=== PATIENT | female | born 1995 | race Caucasian/White ===

== ENCOUNTER 2016-11-27 20:28 | Emergency (ER) | payer BC ==
[2016-11-27 20:35] VITALS: BP 132/80; BMI 55.0
--- NOTE | 2016-11-27 21:15 | DR.GENAD ---
HPI - PCP Primary Care Physician: NFD - Complaint/Symptoms Chief Complaint Doctors Comments: Patient admits to suprapubic, LUQ pain and subxiphoid pain for two days Chief Complaint:: BLOATING IN MY STOMACH, PAIN IN MY STOMACH AND BACK FOR 2 DAYS. THOUGHT IT WAS GAS BUT I HAVE TAKEN GAS X TIMES 6, PROTONIX, NOTHING IS HELPING. NAUSEA NO VOMITING. CONSTANT PAIN UNDER RT BREAST TO DIFFUSE ABD AND MID BACK. PAIN WITH BREATHING IN. Self Treatment fo Chief Complaint: SEE ABOVE NOTES - Source History Provided: Patient - Mode of Arrival Mode of Arrival: Ambulatory - Timing Onset of Chief Complaint: 11/26/16 PMH - PMH Past Medical History: Yes Past Medical History: GERD Past Medical History Comment: PCOS Past Surgical History: No - Family History History of Family Medical Conditions: No - Social History Does patient currently use any type of tobacco product: No Have you used tobacco products in the last 12 months: No Type of Tobacco Use: None Does any household member use tobacco: No Alcohol Use: None Do you use any recreational Drugs:: No Lives With: Spouse Lives Where: Home - infectious screening Have you traveled outside the country in the last 6 months?: No Isolation: Standard ROS - Review of Systems Constitutional: negative: Chills Eyes: No Symptoms Reported ENTM: No Symptoms Reported Respiratoy: No Symptoms Reported Cardiovascular: No Symptoms Reported Gastrointestinal/Abdominal: No Symptoms Reported Genitourinary: No Symptoms Reported Neurological: No Symptoms Reported Musculoskeletal: No Symptoms Reported Integumentary: No Symptoms Reported Hematologic/Lymphatic: No Symptoms Reported Endocrine: No Symptoms Reported Psychiatric: No Symptoms Reported All Other Systems: Reviewed and Negative PE - Vital Signs Vitals: Pulse Rate 100 Respiratory Rate 18 Blood Pressure 132/80 O2 Sat by Pulse Oximetry 97 - General Limitations: No Limitations General Appearance: Alert, In No Apparent Distress - Head Head Exam: Normal Inspection, Atraumatic - Eyes Eye exam: Normal Appearance, PERRL, EOMI - ENT ENT Exam: Normal Exam External Ear Exam: Normal External Inspection TM/Canal Exam: Bilateral Normal Nose Exam: Normal Nose Exam Mouth Exam: Normal Inspection Throat Exam: Normal Inspection - Neck Neck Exam: Normal Inspection, Full ROM - Chest Chest Inspection: Normal Inspection - Respiratory Respiratory Exam: Normal Lung Sounds Bilat Respiratory Exam: Bilateral Clear to Auscultation - Cardiovascular Cardiovascular Exam: Regular Rate, Normal Rhythm - Abdominal Exam Abdominal Exam: Tenderness (LUQ) Abdominal Tenderness: Epigastrium, Suprapubic - Extremities Extremities Exam: Normal Inspection, Full ROM - Back Back Exam: Normal Inspection, Full ROM - Neurologic Neurological Exam: Alert, Oriented X3, CN II-XII Intact - Psychiatric Psychiatric Exam: Normal Affect, Normal Mood - Skin Skin Exam: Warm, Dry ROR - Labs Reviewed Laboratory Results Reviewed?: Yes (H pylori, Urine:2+leuk;wbc 8-10) Result Diagrams: 11/27/16 21:10 Laboratory: WBC 10.3 X10^3/uL (3.6-10.0) H 11/27/16 21:10 RBC 5.29 X10^6/uL (3.5-5.4) 11/27/16 21:10 Hgb 14.8 g/dL (12.0-16.0) 11/27/16 21:10 Hct 42.9 % (36.0-47.0) 11/27/16 21:10 MCV 81.2 fL (80.0-100.0) 11/27/16 21:10 MCH 28.0 pg (27.0-34.0) 11/27/16 21:10 MCHC 34.5 g/dL (33.0-35.0) 11/27/16 21:10 RDW 14.7 % (11.6-16.5) 11/27/16 21:10 Plt Count 190 X10^3/uL (150.0-450.0) 11/27/16 21:10 MPV 10.8 fL (7.4-11.0) 11/27/16 21:10 Neut % 62.5 % (42.0-75.0) 11/27/16 21:10 Lymph % 27.0 % (21.0-51.0) 11/27/16 21:10 [place] % 7.7 % (0.0-13.0) 11/27/16 21:10 Eos % 1.8 % (0.9-2.9) 11/27/16 21:10 Baso % 1.0 % (0.2-1.0) 11/27/16 21:10 Neut # 6.5 x10^3/uL (2.2-4.8) H 11/27/16 21:10 Lymph # 2.8 X10^3/uL (1.3-2.9) 11/27/16 21:10 [place] # 0.8 x10^3/uL (0.3-0.8) 11/27/16 21:10 Eos # 0.2 x10^3/uL (0.0-0.2) 11/27/16 21:10 Baso # 0.1 X10^3/uL (0.0-0.1) 11/27/16 21:10 Absolute Nucleated RBC 0.1 /100WBC 11/27/16 21:10 C-Reactive Protein 31.40 mg/L (0-3.0) H 11/27/16 21:10 Amylase 97 Units/L (25-115) 11/27/16 21:10 Lipase 225 Units/L (73-393) 11/27/16 21:10 HCG, Qual Negative <10 mIU/mL 11/27/16 21:10 Specimen Type Clean catch urine 11/27/16 21:10 Urine Color Yellow (YELLOW) 11/27/16 21:10 Urine Appearance Cloudy (CLEAR) 11/27/16 21:10 Urine pH 5.0 (5.0 - 8.0) 11/27/16 21:10 Ur Specific [place] 1.025 (1.000-1.030) 11/27/16 21:10 Urine Protein 2+ (NEGATIVE) 11/27/16 21:10 Urine Glucose (UA) Negative (NEGATIVE) 11/27/16 21:10 Urine Ketones Negative (NEGATIVE) 11/27/16 21:10 Urine Occult Blood 5+ (NEGATIVE) 11/27/16 21:10 Urine Nitrite Negative (NEGATIVE) 11/27/16 21:10 Urine Bilirubin Negative (NEGATIVE) 11/27/16 21:10 Urine Urobilinogen Normal (NORMAL) 11/27/16 21:10 Ur Leukocyte Esterase 2+ (NEGATIVE) 11/27/16 21:10 Urine RBC 0-3 /HPF (NEGATIVE) 11/27/16 21:10 Urine WBC 8-10 /HPF (NEGATIVE) 11/27/16 21:10 Ur Squamous Epith Cells Rare /HPF (NEGATIVE) 11/27/16 21:10 Amorphous Sediment 1+ /HPF (NEGATIVE) 11/27/16 21:10 Urine Bacteria 2+ /HPF (NEGATIVE) 11/27/16 21:10 Ur Culture Indicated? Yes/culture set up 11/27/16 21:10 H. pylori IgG Antibody Positive (NEGATIVE) A 11/27/16 21:10 - Diagnosis Discharge Problem: Helicobacter pylori gastritis UTI (urinary tract infection) Qualifiers: Urinary tract infection type: acute cystitis Hematuria presence: with hematuria Qualified Code(s): N30.01 - Acute cystitis with hematuria - Discharge Plan Condition: Stable - Follow ups/Referrals Follow ups/Referrals: NFD,None [Primary Care Provider] - 3 days - Instructions
[2016-11-27 21:26] LABS: BASOPHILS # (AUTO) 0.1 X10^3/uL (0.0-0.1); BILIRUBIN,URINE NEGATIVE (NEGATIVE); BLOOD/HEMOGLOBIN,URINE 5+ (NEGATIVE); EOSINOPHILS # (AUTO) 0.2 x10^3/uL (0.0-0.2); EOSINOPHILS % (AUTO) 1.8 % (0.9-2.9); GLUCOSE, URINE NEGATIVE (NEGATIVE); HEMATOCRIT 42.9 % (36.0-47.0); HEMOGLOBIN 14.8 g/dL (12.0-16.0); KETONES,URINE NEGATIVE (NEGATIVE); LEUKOCYTE ESTERASE ,URINE 2+ (NEGATIVE); LYMPHOCYTES # (AUTO) 2.8 X10^3/uL (1.3-2.9); MEAN CORPUSCULAR HGB CONC 34.5 g/dL (33.0-35.0); MEAN CORPUSCULAR VOLUME 81.2 fL (80.0-100.0); MEAN PLATELET VOLUME 10.8 fL (7.4-11.0); MONOCYTES # (AUTO) 0.8 x10^3/uL (0.3-0.8); MONOCYTES % (AUTO) 7.7 % (0.0-13.0); NEUTROPHILS # (AUTO) 6.5 x10^3/uL (2.2-4.8); NEUTROPHILS % (AUTO) 62.5 % (42.0-75.0); NITRITES,URINE NEGATIVE (NEGATIVE); PLATELET COUNT 190 X10^3/uL (150.0-450.0); PROTEIN,URINE 2+ (NEGATIVE); RED BLOOD COUNT 5.29 X10^6/uL (3.5-5.4); RED CELL DISTRIBUTION WIDTH 14.7 % (11.6-16.5); UROBILINOGEN,URINE NORMAL (NORMAL); WHITE BLOOD COUNT 10.3 X10^3/uL (3.6-10.0)
[2016-11-27 21:34] LABS: C-REACTIVE PROTEIN 31.4 mg/L (0-3.0); SERUM PREGNANCY TEST, QUAL NEGATIVE <10 mIU/mL
[2016-11-27 21:35] LABS: AMORPHOUS SEDIMENT,UR 1+ /HPF (NEGATIVE); APPEARANCE,URINE CLOUDY (CLEAR); BACTERIA,URINE 2+ /HPF (NEGATIVE); COLOR,URINE YELLOW (YELLOW); RBC,URINE 0-3 /HPF (NEGATIVE); SQUAMOUS EPITHELIAL CELL,UR RARE /HPF (NEGATIVE)
== END 2016-11-27 21:57 | disposition home or self-care (01) ==
LOC: ER 20:41
DX: N30.01 Acute cystitis with hematuria (principal); B96.81 Helicobacter pylori [H. pylori] as the cause of diseases classified elsewhere
CPT/HCPCS: 36415; 81001; 82150; 83690; 84703; 85025; 86140; 86677; 87086; 99282